=== PATIENT | female | born 1970 | race Caucasian/White ===

== ENCOUNTER 2016-08-20 03:42 | Emergency (ER) | payer BC ==
[~2016-08-20] VITALS: Ht 162.6 cm; Wt 113.4 kg
[~2016-08-20 03:42] MED LIST: METF500T4 PO
--- NOTE | 2016-08-20 04:09 | NUR ---
PT AMBULATED TO THE BATHROOM WITH A STEADY GAIT. PT THEN AMBULATED TO BED #3 WITH A STEADY GAIT.
--- NOTE | 2016-08-20 04:19 | NUR ---
DR. LOZADA IS AT THE BEDSIDE.
[2016-08-20] MEDS ORDERED: ACETAMINOPHEN ES 500 MG TABLET ONE (04:23)
[2016-08-20] MEDS ORDERED: IBUPROFEN 400 MG TABLET ONE (04:23)
[2016-08-20] MEDS ORDERED: IBUPROFEN 400 MG TABLET PO ONE (04:30)
[2016-08-20] MEDS ORDERED: ACETAMINOPHEN 325 MG TABLET PO ONE (04:30)
--- NOTE | 2016-08-20 04:41 | NUR ---
Patient discharged to home in stable condition. Written and verbal after care instructions given. Patient verbalizes understanding of instruction. PT REC'D AN EXCUSE FOR WORK. PT TOLERATED PO MEDICATION WELL. PT AMBULATED OUT WITH A STEADY GAIT. VSS.
[2016-08-20 04:43] VITALS: BP 166/77
== END 2016-08-20 04:38 | disposition home or self-care (01) ==
LOC: ER 03:44
DX: J06.9 Acute upper respiratory infection, unspecified (principal)
CPT/HCPCS: A4606; Z7610